=== PATIENT | male | born 1990 | race Caucasian/White ===

== ENCOUNTER 2021-07-19 08:49 | Emergency (ER) | payer BC, SELFPAY ==
--- NOTE | ~2021-07-19 | XR_ITS ---
EXAMINATION: XR shoulder LT min 2V INDICATION: Left shoulder pain TECHNIQUE: Four views of the left shoulder are submitted. COMPARISON: None FINDINGS: There is widening of the acromioclavicular joint with caudal displacement of the acromion w ith respect to the distal clavicle. There is also widening of the coracoclavicular distance. There is no fracture. The glenohumeral joint space is normal. Soft tissues are unremarkable. IMPRESSION: 1. Findings suggestive of type III acromioclavicular joint injury. Reviewed, dictated and finalized at location B. OR CONTROL ASSISTANT
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
[2021-07-19 09:12] VITALS: BP 131/78; PULSE 76; RESP 16; TEMP 36.1; O2SAT 100
== END 2021-07-19 09:55 | disposition home or self-care (01) ==
PROVIDERS: Emergency Provider Nurse Practitioner
DX: S43.102A Unspecified dislocation of left acromioclavicular joint, initial encounter (principal); V86.06XA Driver of dirt bike or motor/cross bike injured in traffic accident, initial encounter
CPT/HCPCS: 73030; 99213; G0463